=== PATIENT | female | born 1960 | race Caucasian/White ===

== ENCOUNTER 2023-07-20 20:27 | Emergency (ER) | payer SELFPAY ==
[~2023-07-20] VITALS: Ht 160 cm; Wt 77.0 kg
[~2023-07-20 20:27] MED LIST: ALPR0.5T PO; ASPI-394 PO; ATEN-60 PO; ZOLP10TA PO
[2023-07-20 20:57] VITALS: BP 127/86; RESP 18; O2SAT 97
[2023-07-20 21:11] VITALS: PULSE 102
[2023-07-20 22:12] LABS: Basophils # (auto) 0.1 10 ^3/uL (0-0.2); Basophils % (auto) 1.3 % (0.0-2.0); Eosinophils # (auto) 0.2 10 ^3/uL (0-0.8); Eosinophils % (auto) 1.9 % (0.0-7.0); Hematocrit 44.3 % (36.0-46.0); Hemoglobin 14.7 g/dL (12.2-16.2); Lymphocytes # (auto) 1.9 10 ^3/uL (0.4-5.4); Lymphocytes % (auto) 24.7 % (10.0-50.0); Mean Corpuscular Hemoglobin 29.6 pg (28.0-32.0); Mean Corpuscular Hgb Conc. 33.1 g/dL (32.0-36.0); Mean Corpuscular Volume 89.6 fL (80.0-100.0); Monocytes # (auto) 0.5 10 ^3/uL (0-1.3); Monocytes % (auto) 6.1 % (0.0-12.0); Neutrophils # (auto) 5.2 10 ^3/uL (1.6-8.6); Nucleated Red Blood Cells % 0.1 %; Red Blood Cells 4.95 10^6/uL (4.0-5.20); White Blood Cell 7.9 10^3/uL (4.4-10.8)
[2023-07-20 22:27] LABS: Alanine Aminotransferase 37 U/L (7-40); Albumin 4.5 g/dL (3.2-4.8); Alkaline Phosphatase 95 U/L (46-116); Aspartate Aminotransferase 31 U/L (13-40); BUN/Creatinine Ratio 7.9 (10.0-20.0); Blood Urea Nitrogen 7 mg/dL (9-23); Chloride 104 mmol/L (98-107); Glucose 96 mg/dL (74-106); INR 0.99 (0.9-1.15); Magnesium 1.9 mg/dL (1.6-2.6); Partial Thromboplastin Time 22.2 SEC (24.5-34.5); Potassium 4.2 mmol/L (3.5-5.1); Prothrombin Time 10.4 sec (9.3-11.8); Sodium 138 mmol/L (136-145)
[2023-07-20 22:28] LABS: Bilirubin, Total 0.9 mg/dL (0.2-1.0)
== END 2023-07-20 22:53 | disposition left against medical advice (07) ==
LOC: EDBD 20:27 → ER 20:27
DX: K22.2 Esophageal obstruction (principal); I10 Essential (primary) hypertension; Z90.49 Acquired absence of other specified parts of digestive tract; Z88.0 Allergy status to penicillin; Z79.82 Long term (current) use of aspirin; Z79.899 Other long term (current) drug therapy
CPT/HCPCS: 36415; 71045; 80053; 83735; 84484; 85025; 85610; 85730; 93005